=== PATIENT | female | born 1995 | race Caucasian/White ===

== ENCOUNTER → 2019-10-18 14:03 | Outpatient (CLI) | payer OTHER, MEDICAID, SELFPAY ==
[2019-10-21 20:49] LABS: Brief History NTD NG; Calc Gestational Age 15.1; Cigarette Smoker NO; Donated Egg NO; Donor Egg Age NO; Estriol, Free 0.69 ng/mL; Inhibin A, Dimeric 380 pg/mL; Inhibin A, MoM 2.42; Maternal Weight 205 lbs; Number of Fetuses 1; Previous Pregnancy Down Syndro NO; hCG, Serum 135.6 IU/mL
== END ==
PROVIDERS: Referring Provider Obstetrics & Gynecology; Visit Provider Obstetrics & Gynecology
DX: Z34.82 Encounter for supervision of other normal pregnancy, second trimester (principal)
CPT/HCPCS: 36415; 82105; 82677; 84702; 86336

== ENCOUNTER → 2019-10-19 14:08 | Outpatient (CLI) | payer OTHER, MEDICAID, SELFPAY ==
--- NOTE | 2019-10-19 14:09 | DI.US.S_ITS ---
PROCEDURE: US OB LIMITED INDICATIONS: CERVICAL LENGTH CHECK OUTSIDE/PRIOR DATING DATA: Last menstrual period (LMP): Not available. LMP-based estimated date of delivery (LING): Not available. First dating scan (date and location): Not available. Estimated date of delivery (LING) from first dating scan: Not available. TECHNIQUE: Real-time scanning was performed of the fetus, with image documentation. Endovaginal scanning: Not necessary. COMPARISON: None. FINDINGS: A single living intrauterine gestation is present. Presentation: Vertex. Placenta: Placental position is posterior, without previa. heart rate: 143 beats per minute. Maternal cervical canal: 5.1 cm long. Normal lower limit is 2.5 cm. IMPRESSION: Limited study, no comparisons available, 5.1 cm normal cervical length. heart rate 143 beats per minute, vertex presentation, amniotic fluid volume appears normal. Dictated by: Rakesh Copeland M.D. on 10/19/2019 at 15:09 Approved by: Rakesh Copeland M.D. on 10/19/2019 at 15:11
== END ==
PROVIDERS: Referring Provider Obstetrics & Gynecology; Visit Provider Obstetrics & Gynecology
DX: Z36.89 Encounter for other specified antenatal screening (principal)
CPT/HCPCS: 76815

== ENCOUNTER → 2019-11-16 12:21 | Outpatient (CLI) | payer OTHER, MEDICAID, SELFPAY ==
--- NOTE | 2019-11-16 | DI.US.S_ITS ---
PROCEDURE: OB >= 14 WEEKS FETUS INDICATIONS: ANATOMY OUTSIDE/PRIOR DATING DATA: Last menstrual period (LMP): Unknown. LMP-based estimated date of delivery (LING): Unknown. First dating scan (date and location): 11/16/19. Estimated date of delivery (LING) from first dating scan: 04/13/20. TECHNIQUE: Real-time scanning was performed of the fetus, with image documentation and biometric measurements. Endovaginal scanning: Not performed. COMPARISON: [facility], OB <= 14 WEEKS FETUS, 10/18/2019, 13:49. [facility], OB LIMITED, 10/19/2019, 14:30. FINDINGS: General: A single living intrauterine gestation is present. Presentation: Vertex Placenta: Placental position is posterior, without previa. Amniotic fluid index: 13 cm, normal range is 5-24 cm. heart rate: 157 beats per minute. Maternal cervical canal: 4.7 cm long. Normal lower limit is 2.5 cm. biometrics: Biparietal diameter: 4.2 cm, 18 weeks, 5 days Head circumference: 16.4 cm, 19 weeks one day Abdominal circumference: 13.6 cm, 19 weeks zero day Femur length: 2.6 cm, 18 weeks, zero day Estimated gestational age from initial scan: not applicable. Composite gestational age from present scan: 18 weeks, 5 days Estimated weight and percentile: 249 g, 5% Measurement variability for biometric dating: +/- 7 days from 14 weeks to 15 weeks 6 days gestation, +/- 10 days from 16 weeks to 21 weeks 6 days gestation, +/- 2 weeks from 22 weeks to 27 weeks 6 days gestation, +/- 3 weeks for 28 weeks gestation or later. weight reference: 4500 g or EFW >90/95% is considered macrosomia or large for gestational age. EFW <10% is small for gestational age. EFW 5% or less is considered intra-uterine growth restriction. Patient's known possible venous coombs versus subchorionic hematoma measures 6.8 x 3.5 x 3.2 cm in size now measures approximately 3.1 x 2.8 x 1.5 cm in size. There is a cystic structure near internal os and measures 3.2 x 1.6 x 3.7 cm in size which is unchanged or minimally increased in size compared to previous studies. Anatomic survey: Neuro: Ventricles are non-dilated at less than 10 mm. Cisterna magna is normal at 3-11 mm. Cerebellum is normal in size and morphology. Nuchal skin fold: Normal at less than 6 mm between 14-21 weeks gestational age. Face: Not well seen. Spine: No evidence for spina bifida. Heart: 4-chambered heart is present. Outflow tracts are not well seen on this study. Diaphragm: Diaphragm is intact. Stomach: Left-sided stomach is present. Kidneys: No hydronephrosis. Normal is less than 5 mm in 2nd trimester, less than 7 mm in 3rd trimester. Cord: 3-vessel cord is seen. Cord insertion is not well visualized. Bladder: Normal in size. Extremities: All 4 extremities identified. 3.2 x 2.7 cm simple cyst in upper pole of the left kidney is seen. IMPRESSION: 1. Single live intrauterine . Estimated weight is at 5%. 2. Normal amount of magnetic fluid. 3. face, outflow tracts, and cord insertion are not well visualized on this study. Rest of the anatomic survey is normal. 4. There is interval decrease in the size of patient's known venous coombs versus subchorionic hematoma. 5. Stable cystic structure near internal os and is of indeterminate significance. Continued sonographic followup is recommended. Dictated by: Sanya Jama M.D. on 11/16/2019 at 14:05 Approved by: Sanya Jama M.D. on 11/16/2019 at 14:33
== END ==
PROVIDERS: PCP Obstetrics & Gynecology; Referring Provider Obstetrics & Gynecology; Visit Provider Obstetrics & Gynecology
DX: Z34.92 Encounter for supervision of normal pregnancy, unspecified, second trimester (principal); Z3A.18 18 weeks gestation of pregnancy
CPT/HCPCS: 76811

== ENCOUNTER 2019-11-20 20:51 | Outpatient (CLI) | payer OTHER, MEDICAID, SELFPAY | END 2019-11-20 21:14 | disposition home or self-care (01) | LOC: OB 11-21 10:56 | PROVIDERS: PCP Obstetrics & Gynecology; Referring Provider Nurse Practitioner Obstetrics & Gynecology; Visit Provider Nurse Practitioner Obstetrics & Gynecology | DX: O36.8120 Decreased fetal movements, second trimester, not applicable or unspecified (principal); Z3A.20 20 weeks gestation of pregnancy | CPT/HCPCS: 59025; G0378; G0379 ==

== ENCOUNTER → 2019-11-22 11:55 | Outpatient (CLI) | payer OTHER, MEDICAID, SELFPAY ==
[2019-11-24 10:07] LABS: Bile Acids 3.7 umol/L (0.0-10.0)
== END ==
PROVIDERS: PCP Obstetrics & Gynecology; Referring Provider Obstetrics & Gynecology; Visit Provider Obstetrics & Gynecology
DX: O99.712 Diseases of the skin and subcutaneous tissue complicating pregnancy, second trimester (principal); L29.9 Pruritus, unspecified
CPT/HCPCS: 36415; 82239

== ENCOUNTER 2019-12-08 16:14 | Outpatient (CLI) | payer OTHER, MEDICAID, SELFPAY ==
[2019-12-08 16:36] LABS: Bacteria Urine None Seen; RBC Urine None Seen (0-5/HPF); WBC Urine None Seen (0-5/HPF)
[2019-12-08 16:37] LABS: Appearance Urine UA CLEAR; Bilirubin Urine UA NEGATIVE (NEGATIVE); Color Urine UA YELLOW; Glucose Urine UA NEGATIVE (Negative); Ketones Urine UA NEGATIVE (NEGATIVE); Leukocyte Esterase Urine UA NEGATIVE (NEGATIVE); Nitrite Urine UA NEGATIVE (Negative); Occult Blood Urine UA NEGATIVE (Negative); Protein Urine UA NEGATIVE (Negative); Specific Gravity Urine UA <=1.005 (1.000-1.035); Urobilinogen Urine UA 0.2 E.U./dL (0.2)
[2019-12-08 16:40] LABS: pH Urine UA 6.5 (4.5-8.0)
[2019-12-08 16:48] LABS: Culture Indicated Urine Cult Not Indicated; Urine Comments Microscopic Normal
--- NOTE | 2019-12-08 17:10 | P.TNLD_ITS ---
Visit Information Visit Information Date of evaluation: 12/08/19 Primary OB Provider: Marilyn Barrios On-call OB Provider: Karin Rolon Reason for Evaluation: Yes non-stress test non-stress test reason: other (cramping) Comments/Additional reasons for admission: 24 year old at 22 weeks gestation with h/o UTI with complaints of cramping all day. Denied bleeding or leaking and reported good movement. No fevers, back pain, nausea or vomiting. History significant for UTIs and pyelonephritis. Chart shows that she should be taking prophylactic Macrobid however she has not been taking it. Vital Signs Vital Signs: T 36.7 BP 104/60 P 81 PFSH Medical History (Updated 12/08/19 @ 17:15 by Karin Rolon DO) Anxiety (Acute) Chronic UTI (Acute) Constipated (Acute) Dysuria (Acute) Infertility (Acute) Kidney infection (Acute ~2013) (spontaneous vaginal delivery) (Acute ~2014) Surgical History (Updated 10/17/19 @ 11:52 by Nola Maria RN) [place] teeth removed (Acute ~2017) Family History (Updated 10/17/19 @ 11:58 by Nola Maria, TIFFANY) Mother Interstitial cystitis Bipolar 1 disorder Fibromyalgia Abnormal breast biopsy Family/Other Breast cancer Father Arthritis Grandfather Oral cancer Family estrangement Grandmother No problems noted. Grandfather AA (alcohol abuse) Hypotension Grandmother No problems noted. Brother No problems noted. Sister ADHD Social History marital status: household members: spouse and children pets and animals: Yes (X 3 cats ) education level: college (some college - Cos[employer]ology Program ) occupational status: employed current occupational exposures/hazards: No special manuel needs: No Smoking Status: Former smoker (vaped about 6 months) second hand exposure: No substance use type: does not use Objective Labs Labs: Laboratory Results - last 24 hr 12/08/19 16:15 Urine Color Yellow Urine Appearance Clear Urine pH 6.5 Ur Specific [place] <=1.005 Urine Protein Negative Urine Glucose (UA) Negative Urine Ketones Negative Urine Occult Blood Negative Urine Nitrate Negative Urine Bilirubin Negative Urine Urobilinogen 0.2 Ur Leukocyte Esterase Negative Urine RBC None seen Urine WBC None seen Urine Bacteria None seen Ur Culture Indicated? Cult not indicated Micro UA Comment Microscopic normal Evaluation Evaluation Baseline heart rate: 150 Variability: Average (6-10) monitor accelerations: Present (gestational age appropriate) monitor decelerations: Absent Category of Tracing: I Laboratory results: Laboratory Tests 12/08/19 16:15 Urine Color Yellow Urine Appearance Clear Urine pH 6.5 Ur Specific [place] <=1.005 Urine Protein Negative Urine Glucose (UA) Negative Urine Ketones Negative Urine Occult Blood Negative Urine Nitrate Negative Urine Bilirubin Negative Urine Urobilinogen 0.2 Ur Leukocyte Esterase Negative Urine RBC None seen Urine WBC None seen Urine Bacteria None seen Ur Culture Indicated? Cult not indicated Micro UA Comment Microscopic normal Diagnosis, Plan/Disposition Final Diagnosis (1) 22 weeks gestation of : Current Visit: Yes Status: Acute Plan/Disposition Plan: Reactive NST. No contractions on monitor. UA completely negative. Patient was reassured and will f/u with Dr. Barrios as scheduled next week. OB Disposition: home
== END 2019-12-08 17:16 | disposition home or self-care (01) ==
LOC: OB 12-09 08:19
PROVIDERS: PCP Obstetrics & Gynecology; Referring Provider Family Medicine; Visit Provider Family Medicine
DX: O47.02 False labor before 37 completed weeks of gestation, second trimester (principal); Z3A.22 22 weeks gestation of pregnancy
CPT/HCPCS: 59025; 81001; G0378; G0379

== ENCOUNTER → 2020-01-11 12:32 | Outpatient (CLI) | payer OTHER, MEDICAID, SELFPAY | PROVIDERS: PCP Obstetrics & Gynecology; Visit Provider Obstetrics & Gynecology | DX: Z34.82 Encounter for supervision of other normal pregnancy, second trimester (principal); R39.9 Unspecified symptoms and signs involving the genitourinary system; Z3A.27 27 weeks gestation of pregnancy | CPT/HCPCS: 87086 ==

== ENCOUNTER → 2020-01-24 12:52 | Outpatient (CLI) | payer OTHER, MEDICAID, SELFPAY ==
[2020-01-24 14:49] LABS: Hematocrit 27.8 % (36-46); Hemoglobin 9.4 g/dL (12.0-16.0)
[2020-01-24 15:27] LABS: GTT (PREG) 1 Hour PP 50gm Dose 107 mg/dL (76-139)
== END ==
PROVIDERS: Referring Provider Obstetrics & Gynecology; Visit Provider Obstetrics & Gynecology
DX: Z34.82 Encounter for supervision of other normal pregnancy, second trimester (principal); Z3A.23 23 weeks gestation of pregnancy
CPT/HCPCS: 36415; 82950; 85014; 85018

== ENCOUNTER 2020-02-24 12:57 | Emergency (ER) | payer OTHER, MEDICAID, SELFPAY ==
[2020-02-24 13:00] VITALS: BP 129/84; PULSE 96; RESP 16; TEMP 36.6; O2SAT 100; BMI 34.0
--- NOTE | 2020-02-24 13:04 | ED_ITS ---
HPI - SOB/Dyspnea General Chief Complaint: Abdominal Pain Stated Complaint: Trouble Breathing/Light Headed Time Seen by Provider: 02/24/20 13:02 Source: patient and family Mode of arrival: Ambulatory Limitations: no limitations History of Present Illness HPI Narrative: 24-year-old female nonsmoker with history of iron deficiency anemia is a at 30 weeks and presents with her daughter and a chief complaint of a few days of shortness of breath and some lightheadedness upon standing. She denies any cough or chest pain. She has had no fever or chills. She denies runny nose, sore throat nor nausea, or diarrhea. She has some very vague lower pelvic cramping but denies bleeding or leakage of fluid. She has no trouble with urination such as dysuria, frequency or urgency. She denies any pain, redness or swelling of her lower extremities. She spoke with her bark scaler who directed her here for evaluation MD Complaint: shortness of breath Onset (ago): day(s) Consistency/Duration: constant Relieving factors: nothing Exacerbating factors: nothing Treatment prior to arrival: none Related Data Home oxygen amount: none Home Medications Medication Instructions Recorded Confirmed prenat.vits,johnny,nxk-[id number] 1 tab PO DAILY 10/17/19 10/25/19 Previous Rx's Medication Instructions Recorded nitrofurantoin macrocrystal 100 mg 100 mg PO DAILY #60 cap 10/18/19 capsule ferrous gluconate 324 mg (37.5 mg 324 mg PO BID #60 tab 02/01/20 iron) tablet Allergies Allergy/AdvReac Type Severity Reaction Status Date / Time sulfamethoxazole Allergy Severe Skin burn Verified 02/24/20 13:06 [From Bactrim] and bleeding trimethoprim [From Bactrim] Allergy Severe Skin burn Verified 02/24/20 13:06 and bleeding Review of Systems Constitutional Constitutional: Denies chills, Denies fatigue, Denies fever(s), Denies frequent falls, Denies lethargy and Denies weakness Eyes Eyes: Denies change in vision, Denies eye discharge, Denies irritation and Denies loss of vision ENT Ears, Nose, Mouth, and Throat: Denies change in voice, Denies dizziness, Denies neck pain, Denies sore throat and Denies throat swelling Cardiovascular Cardiovascular: Denies chest pain, Denies irregular heart rhythm, Denies lightheadedness, Denies palpitations, Reports dyspnea, Denies dyspnea on exertion and Denies orthopnea Respiratory Respiratory: Denies cough, Reports dyspnea, Denies dyspnea on exertion and Denies wheezing Gastrointestinal Gastrointestinal: Denies abdominal pain, Denies change in bowel habits, Denies diarrhea, Denies nausea and Denies vomiting Musculoskeletal Musculoskeletal: Denies neck pain and Denies numbness Integumentary/Breasts Skin/Breast: Denies pruritus, Denies erythema, Denies rash and Denies wounds Neurologic Neurologic: Denies behavioral changes, Denies confusion, Denies dizziness, Denies frequent falls, Denies loss of vision, Denies numbness and Denies weakness Psychiatric Psychiatric: Denies anxiety, Denies behavioral changes, Denies confusion, Denies depression, Denies homicidal ideation and Denies suicidal ideation Endocrine Endocrine: Denies fatigue, Denies flushing and Denies palpitations Hematologic/Lymphatic Hematologic/Lymphatic: Denies easy bruising Allergic/Immunologic Allergic/Immunologic: Denies urticaria, Denies throat swelling and Denies wheezing Patient History Medical History Anxiety (Acute) Chronic UTI (Acute) Constipated (Acute) Dysuria (Acute) Infertility (Acute) Kidney infection (Acute ~2013) (spontaneous vaginal delivery) (Acute ~2014) Surgical History [place] teeth removed (Acute ~2017) Family History Mother Interstitial cystitis Bipolar 1 disorder Fibromyalgia Abnormal breast biopsy Family/Other Breast cancer Father Arthritis Grandfather Oral cancer Family estrangement Grandmother No problems noted. Grandfather AA (alcohol abuse) Hypotension Grandmother No problems noted. Brother No problems noted. 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 Well- nourished, well-developed patient, in mild distress. HEAD: Atraumatic. Normocephalic. EYES: Pupils equal round and reactive. Extraocular motions intact. No scleral icterus. No injection or drainage. ENT: Nose without bleeding, purulent drainage. Throat without erythema, tonsillar hypertrophy or exudate. Airway patent. NECK: Trachea midline. Non tender CARDIOVASCULAR: Regular rate and rhythm without murmurs, gallops, or rubs. RESPIRATORY: Clear to auscultation. Breath sounds equal bilaterally. No wheezes, rales, or rhonchi. GASTROINTESTINAL: Gravid above the level of umbilicus EXTREMITIES: No edema or joint tenderness. BACK: Nontender without deformity or crepitance. No flank tenderness. NEURO: AOx3. SKIN: No rash or erythema of visible areas Initial Vital Signs Initial Vital Signs: Vital Signs Temperature 97.8 F 02/24/20 13:00 Pulse Rate 96 H 02/24/20 13:00 Respiratory Rate 16 02/24/20 13:00 Blood Pressure 129/84 02/24/20 13:00 Pulse Oximetry 100 02/24/20 13:00 Course Orders Ordered: ED Orders 02/24/20 13:15 Alanine Aminotransferase Stat Aspartate Aminotransferase Stat Lactate Dehydrogenase Stat Uric Acid Stat 02/24/20 13:16 Basic Metabolic Panel Stat Complete Blood Count AUTO DIFF Stat D Dimer Stat Troponin & CK Cardiac Panel Stat Consultations Consultation #1: call to Dr. Barrios, and case discussed. Requests she be sent to L&D Vital Signs Vital signs: Vital Signs - 8 hr 02/24/20 13:00 02/24/20 14:55 Temperature 97.8 F Pulse Rate 96 H 95 H Respiratory Rate 16 18 Blood Pressure 129/84 112/60 Pulse Oximetry 100 99 MDM - SOB/Dyspnea Lab Data Result diagrams: 02/24/20 13:16 02/24/20 13:16 Labs: Lab Results 02/24/20 02/24/20 02/24/20 Range/Units 13:15 13:16 13:16 WBC 9.4 (4.5-11.0) X10^3/uL RBC 3.63 L (4.0-5.2) X10^6/uL Hgb 9.8 L (12.0-16.0) g/dL Hct 30.3 L (36-46) % MCV 83.4 (80-100) fL MCH 27.1 (26-34) PG MCHC 32.5 (30-36) % RDW 15.9 H (11.6-14.8) % Plt Count 247 (150-400) X10^3/uL Neut % (Auto) 74.5 (50-75) % Lymph % (Auto) 17.4 L (25-40) % [place] % (Auto) 6.5 (3-14) % Eos % (Auto) 0.7 L (2-4) % Baso % (Auto) 0.9 (0-2) % Neut # (Auto) 7000 (6436-0536) /uL Lymph # (Auto) 1600 (9469-3172) /uL [place] # (Auto) 600 (0-900) /uL Eos # (Auto) 100 (0-450) /uL Baso # (Auto) 100 (0-100) /uL D-Dimer 314 H (<230) ng/mL Sodium (137-145) mmol/L Potassium (3.4-5.1) mmol/L Chloride (98-107) mmol/L Carbon Dioxide (22-32) mmol/L BUN (7-17) mg/dL Creatinine (0.52-1.04) mg/dL Estimated GFR (>60) mL/min BUN/Creatinine Ratio (6-22) Glucose (70-100) mg/dL Uric Acid 4.3 (2.5-6.2) mg/dL Calcium (8.4-10.2) mg/dL AST 28 (14-36) IU/L ALT 18 (<35) IU/L Lactate Dehydrogenase 413 (313-618) U/L Total Creatine Kinase (30-135) U/L CK-MB (CK-2) CK-MB (CK-2) Rel Index Troponin I (0.01-0.034) ng/mL 02/24/20 02/24/20 Range/Units 13:16 13:16 WBC (4.5-11.0) X10^3/uL RBC (4.0-5.2) X10^6/uL Hgb (12.0-16.0) g/dL Hct (36-46) % MCV (80-100) fL MCH (26-34) PG MCHC (30-36) % RDW (11.6-14.8) % Plt Count (150-400) X10^3/uL Neut % (Auto) (50-75) % Lymph % (Auto) (25-40) % [place] % (Auto) (3-14) % Eos % (Auto) (2-4) % Baso % (Auto) (0-2) % Neut # (Auto) (7332-5901) /uL Lymph # (Auto) (7097-7156) /uL [place] # (Auto) (0-900) /uL Eos # (Auto) (0-450) /uL Baso # (Auto) (0-100) /uL D-Dimer (<230) ng/mL Sodium 133 L (137-145) mmol/L Potassium 4.1 (3.4-5.1) mmol/L Chloride 105 (98-107) mmol/L Carbon Dioxide 21 L (22-32) mmol/L BUN 5 L (7-17) mg/dL Creatinine 0.39 L (0.52-1.04) mg/dL Estimated GFR > 60.0 (>60) mL/min BUN/Creatinine Ratio 12.8 (6-22) Glucose 84 (70-100) mg/dL Uric Acid (2.5-6.2) mg/dL Calcium 9.4 (8.4-10.2) mg/dL AST (14-36) IU/L ALT (<35) IU/L Lactate Dehydrogenase (313-618) U/L Total Creatine Kinase 46 (30-135) U/L CK-MB (CK-2) TNP CK-MB (CK-2) Rel Index TNP Troponin I < 0.012 (0.01-0.034) ng/mL Urine Dip Bedside Urine Glucose Negative Bedside Urine Bilirubin - Negative Bedside Urine Ketone - Negative Urine Specific [place] 1.005 Bedside Urine Occult Blood - Negative Bedside Urine pH 6.5 Bedside Urine Protein - Negative Bedside Urine Urobilinogen - Negative Bedside Urine Nitrite - Negative Bedside Urine Leukocytes - Negative Esterase MDM Narrative Medical decision making narrative: Multiple etiologies for patient's symptoms considered including: [Pulmonary embolism versus pneumonia versus asthma versus other] Patient's symptoms improved or duration of stay with above-stated therapies. Findings and discharge diagnosis discussed with patient/family followed by verbalization of understanding Return precautions discussed with patient/family whom verbalize understanding. Discharge Plan Departure Patient Disposition: Home Clinical Impression: Acute dyspnea Qualifiers: Weeks of gestation: 30 weeks Qualified Code(s): Z3A.30 - 30 weeks gestation of Discharge Date/Time: 02/24/20 14:56 Admit Date/Time: 02/24/20 14:59
[2020-02-24 13:31] LABS: Add Manual Diff / Slide Review NO; Basophils Absolute Auto 100 /uL (0-100); Basophils Percent Auto 0.9 % (0-2); Eosinophils Absolute Auto 100 /uL (0-450); Eosinophils Percent Auto 0.7 % (2-4); Hematocrit 30.3 % (36-46); Hemoglobin 9.8 g/dL (12.0-16.0); Lymphocytes Absolute Auto 1600 /uL (1100-4500); Lymphocytes Percent Auto 17.4 % (25-40); Mean Corpuscular HGB Conc 32.5 % (30-36); Mean Corpuscular Hemoglobin 27.1 PG (26-34); Mean Corpuscular Volume 83.4 fL (80-100); Monocytes Absolute Auto 600 /uL (0-900); Monocytes Percent Auto 6.5 % (3-14); Neutrophils Absolute Auto 7000 /uL (1500-7000); Neutrophils Percent Auto 74.5 % (50-75); Platelet Count 247 X10^3/uL (150-400); Red Blood Cell Count 3.63 X10^6/uL (4.0-5.2); Red Cell Distribution Width 15.9 % (11.6-14.8); White Blood Cell Count 9.4 X10^3/uL (4.5-11.0)
[2020-02-24 13:39] LABS: Creatine Kinase 46 U/L (30-135); D Dimer 314 ng/mL (<230)
[2020-02-24 13:40] LABS: BUN Creatinine Ratio 12.8 (6-22); Blood Urea Nitrogen 5 mg/dL (7-17); Calcium 9.4 mg/dL (8.4-10.2); Carbon Dioxide 21 mmol/L (22-32); Chloride 105 mmol/L (98-107); Estimated Glomerular Filt Rate > 60.0 mL/min (>60); Glucose 84 mg/dL (70-100); HEMOLYSIS < 15 (0-50); Potassium 4.1 mmol/L (3.4-5.1); Sodium 133 mmol/L (137-145)
[2020-02-24 13:51] LABS: Troponin I < 0.012 ng/mL (0.01-0.034)
[2020-02-24 14:44] LABS: Alanine Aminotransferase 18 IU/L (<35); Aspartate Aminotransferase 28 IU/L (14-36); Lactate Dehydrogenase 413 U/L (313-618); Uric Acid 4.3 mg/dL (2.5-6.2)
[2020-02-24 14:55] VITALS: BP 112/60; PULSE 95; RESP 18; O2SAT 99
--- NOTE | 2020-02-24 20:42 | PM.OBTRLD ---
Visit Information Visit Information Date of evaluation: 02/24/20 Primary OB Provider: Marilyn Barrios Reason for Evaluation: Yes non-stress test Comments/Additional reasons for admission: This patient presented for NST after being evaluated in the ED for shortness of breath, with normal PIH labs and with low clinical concern for PE and COVID19 per ED physician. Patient had no OB complaints. Vital Signs Vital Signs: Vital Signs - 8 hr 02/24/20 13:00 02/24/20 14:55 Temperature 97.8 F Pulse Rate 96 H 95 H Respiratory Rate 16 18 Blood Pressure 129/84 112/60 Pulse Oximetry 100 99 [facility] Medical History Anxiety (Acute) Chronic UTI (Acute) Constipated (Acute) Dysuria (Acute) Infertility (Acute) Kidney infection (Acute ~2013) (spontaneous vaginal delivery) (Acute ~2014) Surgical History [place] teeth removed (Acute ~2017) Family History Mother Interstitial cystitis Bipolar 1 disorder Fibromyalgia Abnormal breast biopsy Family/Other Breast cancer Father Arthritis Grandfather Oral cancer Family estrangement Grandmother No problems noted. Grandfather AA (alcohol abuse) Hypotension Grandmother No problems noted. Brother No problems noted. Sister ADHD Social History marital status: household members: spouse and children pets and animals: Yes (X 3 cats ) education level: college (some college - Cosmetology Program ) occupational status: employed current occupational exposures/hazards: No special manuel needs: No Smoking Status: Former smoker (vaped about 6 months) second hand exposure: No substance use type: does not use Exam Vital Signs (past 8 hours): - 02/24/20 13:00 02/24/20 14:55 Temperature 97.8 F Pulse Rate 96 H 95 H Respiratory Rate 16 18 Blood Pressure 129/84 112/60 Pulse Oximetry 100 99 Oxygen Delivery Method Room Air Objective Labs Result Diagrams: 02/24/20 13:16 02/24/20 13:16 Labs: Laboratory Results - last 24 hr 02/24/20 02/24/20 02/24/20 13:15 13:16 13:16 WBC 9.4 RBC 3.63 L Hgb 9.8 L Hct 30.3 L MCV 83.4 MCH 27.1 MCHC 32.5 RDW 15.9 H Plt Count 247 Neut % (Auto) 74.5 Lymph % (Auto) 17.4 L [place] % (Auto) 6.5 Eos % (Auto) 0.7 L Baso % (Auto) 0.9 Neut # (Auto) 7000 Lymph # (Auto) 1600 [place] # (Auto) 600 Eos # (Auto) 100 Baso # (Auto) 100 D-Dimer 314 H Sodium Potassium Chloride Carbon Dioxide BUN Creatinine Estimated GFR BUN/Creatinine Ratio Glucose Uric Acid 4.3 Calcium AST 28 ALT 18 Lactate Dehydrogenase 413 Total Creatine Kinase CK-MB (CK-2) CK-MB (CK-2) Rel Index Troponin I 02/24/20 02/24/20 13:16 13:16 WBC RBC Hgb Hct MCV MCH MCHC RDW Plt Count Neut % (Auto) Lymph % (Auto) [place] % (Auto) Eos % (Auto) Baso % (Auto) Neut # (Auto) Lymph # (Auto) [place] # (Auto) Eos # (Auto) Baso # (Auto) D-Dimer Sodium 133 L Potassium 4.1 Chloride 105 Carbon Dioxide 21 L BUN 5 L Creatinine 0.39 L Estimated GFR > 60.0 BUN/Creatinine Ratio 12.8 Glucose 84 Uric Acid Calcium 9.4 AST ALT Lactate Dehydrogenase Total Creatine Kinase 46 CK-MB (CK-2) TNP CK-MB (CK-2) Rel Index TNP Troponin I < 0.012 Evaluation Evaluation Baseline heart rate: 125 Variability: Average (6-10) monitor accelerations: Present monitor decelerations: Absent Laboratory results: Laboratory Tests 02/24/20 02/24/20 02/24/20 13:15 13:16 13:16 WBC 9.4 RBC 3.63 L Hgb 9.8 L Hct 30.3 L MCV 83.4 MCH 27.1 MCHC 32.5 RDW 15.9 H Plt Count 247 Neut % (Auto) 74.5 Lymph % (Auto) 17.4 L [place] % (Auto) 6.5 Eos % (Auto) 0.7 L Baso % (Auto) 0.9 Neut # (Auto) 7000 Lymph # (Auto) 1600 [place] # (Auto) 600 Eos # (Auto) 100 Baso # (Auto) 100 D-Dimer 314 H Sodium Potassium Chloride Carbon Dioxide BUN Creatinine Estimated GFR BUN/Creatinine Ratio Glucose Uric Acid 4.3 Calcium AST 28 ALT 18 Lactate Dehydrogenase 413 Total Creatine Kinase CK-MB (CK-2) CK-MB (CK-2) Rel Index Troponin I 02/24/20 02/24/20 13:16 13:16 WBC RBC Hgb Hct MCV MCH MCHC RDW Plt Count Neut % (Auto) Lymph % (Auto) [place] % (Auto) Eos % (Auto) Baso % (Auto) Neut # (Auto) Lymph # (Auto) [place] # (Auto) Eos # (Auto) Baso # (Auto) D-Dimer Sodium 133 L Potassium 4.1 Chloride 105 Carbon Dioxide 21 L BUN 5 L Creatinine 0.39 L Estimated GFR > 60.0 BUN/Creatinine Ratio 12.8 Glucose 84 Uric Acid Calcium 9.4 AST ALT Lactate Dehydrogenase Total Creatine Kinase 46 CK-MB (CK-2) TNP CK-MB (CK-2) Rel Index TNP Troponin I < 0.012 Diagnosis, Plan/Disposition Plan/Disposition Plan: Home with routine precautions, to call or come in if symptoms worsen. OB Disposition: home
== END 2020-02-24 14:56 | disposition home or self-care (01) ==
LOC: ED 14:34 → LABOR 15:28
PROVIDERS: Emergency Provider Emergency Medicine; Referring Provider Obstetrics & Gynecology; Visit Provider Obstetrics & Gynecology
DX: O26.893 Other specified pregnancy related conditions, third trimester (principal); R06.02 Shortness of breath; Z3A.34 34 weeks gestation of pregnancy
CPT/HCPCS: 36415; 59025; 80048; 81003; 82550; 83615; 84450; 84460; 84484; 84550; 85025; 85379; 99284; G0378

== ENCOUNTER → 2020-03-12 11:39 | Outpatient (CLI) | payer OTHER, MEDICAID, SELFPAY ==
[2020-03-13 09:36] LABS: Strep Grp B PCR NEG for Grp B Strep
== END ==
PROVIDERS: Visit Provider Obstetrics & Gynecology
DX: Z34.83 Encounter for supervision of other normal pregnancy, third trimester (principal); Z3A.35 35 weeks gestation of pregnancy
CPT/HCPCS: 87653

== ENCOUNTER → 2020-04-09 12:18 | Outpatient (CLI) | payer OTHER, MEDICAID, SELFPAY ==
[2020-04-10 20:01] LABS: COVID19 Sendout Not Detected (Not Detect)
== END ==
PROVIDERS: Visit Provider Physician Assistant
DX: Z11.59 Encounter for screening for other viral diseases (principal)
CPT/HCPCS: 87635

== ENCOUNTER 2020-04-11 18:32 | Inpatient (IN) | payer OTHER, MEDICAID, SELFPAY ==
[2020-04-11 19:58] LABS: Add Manual Diff / Slide Review NO; Basophils Absolute Auto 0 /uL (0-100); Basophils Percent Auto 0.2 % (0-2); Eosinophils Absolute Auto 100 /uL (0-450); Eosinophils Percent Auto 0.9 % (2-4); Hematocrit 29.3 % (36-46); Hemoglobin 9.3 g/dL (12.0-16.0); Lymphocytes Absolute Auto 1600 /uL (1100-4500); Lymphocytes Percent Auto 21.7 % (25-40); Mean Corpuscular HGB Conc 31.8 % (30-36); Mean Corpuscular Hemoglobin 24.5 PG (26-34); Monocytes Absolute Auto 500 /uL (0-900); Monocytes Percent Auto 6.8 % (3-14); Neutrophils Absolute Auto 5200 /uL (1500-7000); Neutrophils Percent Auto 70.4 % (50-75); Platelet Count 236 X10^3/uL (150-400); Red Cell Distribution Width 17.8 % (11.6-14.8); White Blood Cell Count 7.5 X10^3/uL (4.5-11.0)
[2020-04-11] MEDS: DINOPROSTONE VAG (CERVIDIL) 10 MG VAG (21:10)
[2020-04-11] MEDS: LACTATED RINGERS 1,000 ML 100 ML IV (21:59)
[2020-04-11] MEDS: ZOLPIDEM 5 MG TABLET 10 MG PO (22:00)
[2020-04-11 22:25] VITALS: BP 111/56
--- NOTE | 2020-04-12 08:26 | P.HPOB_ITS ---
OB HPI Date/Time Date of admission: 04/11/20 Date Patient Seen: 04/12/20 Time Patient Seen: 07:45 History of Present Condition Chief complaint: maternity : 2 Para: 1 Estimated Date of Delivery: 04/15/20 Estimated Gestational Age (weeks): 39 Narrative: Rhonda Doe is a 24 year old female Comments: This patient is a 24-year-old 001 at 39 weeks 4 days admitted for elective induction of labor, having undergone cervical ripening overnight with Cervidil. The patient reports feeling cramping every 2-3 minutes this morning, denies loss of fluid, vaginal bleeding, decreased movement, or any other complaints obstetrical or otherwise. Her has been complicated by elevated quad screen with further evaluation negative by aid of MFM, resolved marginal posterior placenta previa, and subchorionic hemorrhage with bleeding in the 2nd trimester. Her has since been uncomplicated. Patient declines any further cervical exams until she has received her epidural Indications Indication for induction OB: maternal discomfort and other (Elective) History of Present care: good care Dating criteria: LMP confirmed by 2nd trimester US (Adjusted by MFM ultrasound in 2nd trimester.) Ultrasounds: normal mid trimester US Abnormal ultrasound findings: Marginal placenta previa early that resolved, subchorionic hematoma that resolved, question of small left subserosal fibroid. Obstetrical complications: none Medical complications: none Preadmission Labs Blood type: O (+) positive -: Antibody screen: negative, GBS status: negative, HBsAG: negative, HIV: negative and RPR/VDLR: negative -: Chlamydia screen: not detected and Gonorrhea screen: not detected -: Rubella: immune and Varicella: immune Quad screen: Abnormal (Elevated risk of Down syndrome) Cell-free DNA: Negative, performed through double 1 hr GTT: 107 Prior (ies) History: G1: 04/10/15, 42 weeks, 10 lb 14 oz, , Female, postdates induction Evaluation Evaluation Baseline heart rate: 150 Variability: Moderate (11-25) monitor accelerations: Prolonged monitor decelerations: Absent Category of Tracing: Reactive (cat 1 ) Cervical dilation (cm): 2 Cervical effacement (%): 75 station: -2 Laboratory results: Laboratory Tests 04/11/20 04/11/20 18:20 18:20 WBC 7.5 RBC 3.80 L Hgb 9.3 L Hct 29.3 L MCV 77.0 L MCH 24.5 L MCHC 31.8 RDW 17.8 H Plt Count 236 Neut % (Auto) 70.4 Lymph % (Auto) 21.7 L [place] % (Auto) 6.8 Eos % (Auto) 0.9 L Baso % (Auto) 0.2 Neut # (Auto) 5200 Lymph # (Auto) 1600 [place] # (Auto) 500 Eos # (Auto) 100 Baso # (Auto) 0 Blood Type O Positive Antibody Screen Negative [facility] Medical History Anxiety (Acute) Chronic UTI (Acute) Constipated (Acute) Dysuria (Acute) Infertility (Acute) Kidney infection (Acute ~2013) (spontaneous vaginal delivery) (Acute ~2014) Surgical History [place] teeth removed (Acute ~2017) Family History Mother Interstitial cystitis Bipolar 1 disorder Fibromyalgia Abnormal breast biopsy Family/Other Breast cancer Father Arthritis Grandfather Oral cancer Family estrangement Grandmother No problems noted. Grandfather AA (alcohol abuse) Hypotension Grandmother No problems noted. Brother No problems noted. Sister ADHD Social History marital status: household members: spouse and children pets and animals: Yes (X 3 cats ) education level: college (some college - [employer] Program ) occupational status: employed current occupational exposures/hazards: No special manuel needs: No Smoking Status: Never smoker second hand exposure: No substance use type: does not use Meds Home Medications and Allergies Home Medications Medication Instructions Recorded Confirmed Type prenat.vits,johnny,mel-gkrq-[id number] 1 tab PO DAILY 10/17/19 04/12/20 History nitrofurantoin macrocrystal 100 mg 100 mg PO DAILY #60 cap 10/18/19 04/12/20 Rx capsule ferrous gluconate 324 mg (37.5 mg 324 mg PO BID #60 tab 02/01/20 04/12/20 Rx iron) tablet cephalexin 500 mg tablet 500 mg PO DAILY #30 tab 03/19/20 04/12/20 Rx Allergies Allergy/AdvReac Type Severity Reaction Status Date / Time sulfamethoxazole Allergy Severe Skin burn Verified 04/09/20 12:20 [From Bactrim] and bleeding trimethoprim [From Bactrim] Allergy Severe Skin burn Verified 04/09/20 12:20 and bleeding Review of Systems Constitutional Constitutional: Reports system reviewed and no additional complaints, except as documented Cardiovascular Cardiovascular: Reports system reviewed and no additional complaints, except as documented Respiratory Respiratory: Reports system reviewed and no additional complaints, except as documented Gastrointestinal Gastrointestinal: Reports system reviewed and no additional complaints, except as documented Genitourinary Genitourinary: Reports system reviewed and no additional complaints, except as documented Musculoskeletal Musculoskeletal: Reports system reviewed and no additional complaints, except as documented Neurologic Neurologic: Reports system reviewed and no additional complaints, except as documented Exam Vital Signs (past 8 hours): 120/70, 106, 37.5C Const General: cooperative, healthy appearing and comfortable Resp Effort & Inspection: normal respiratory effort Cardio Rate: regular rate Rhythm: regular rhythm GI Palpation: soft and No tender External Female Exam: normal external appearance Other: Patient refuses further exam. Neuro General: patient alert, patient awake and patient oriented x3 Objective Labs Result Diagrams: 04/11/20 18:20 Labs: Laboratory Results - last 24 hr 04/11/20 04/11/20 18:20 18:20 WBC 7.5 RBC 3.80 L Hgb 9.3 L Hct 29.3 L MCV 77.0 L MCH 24.5 L MCHC 31.8 RDW 17.8 H Plt Count 236 Neut % (Auto) 70.4 Lymph % (Auto) 21.7 L [place] % (Auto) 6.8 Eos % (Auto) 0.9 L Baso % (Auto) 0.2 Neut # (Auto) 5200 Lymph # (Auto) 1600 [place] # (Auto) 500 Eos # (Auto) 100 Baso # (Auto) 0 Blood Type O Positive Antibody Screen Negative Assessment and Plan Assessment and Plan Assessment and Plan narrative: This patient is admitted for elective induction of labor in the setting of a prior delivery of a 10 lb 14 oz baby, which was traumatic. She has undergone cervical ripening, has a category 1 tracing, but r efuses further cervical exams. We discussed starting the Pitocin with an epidural after the Pitocin started, and discussed with the patient the further cervical exams and be required to assess her progress the labor. We discussed a room after labor has been established. The patient is anemic, has been intermittently compliant with p.o. iron during this . Admitted per usual induction precautions. - CBC, T&S ordered - pitocin per protocol this AM - cEFM, toco
[2020-04-12] MEDS: OXYTOCIN PREMIX 30 UNIT/500 ML PLAST..BAG IV (10:50)
[2020-04-12] MEDS: LACTATED RINGERS 1,000 ML 100 ML IV (11:05)
[2020-04-12] MEDS: CALCIUM CARBONATE 500 MG TAB 1000 MG PO ×2 (13:30→20:52)
--- NOTE | 2020-04-12 15:31 | PM.OBPNLAB ---
Date/Time Date Patient Seen: 04/12/20 Time Patient Seen: 15:31 Pain Control Pain control: epidural Comments: VSS Pelvic Exam Dilation (cm): 4 Effacement (%): 75 station: -1 Amniotic membrane status: Ruptured (light mec) Contractions Contractions on admission: irregular Pitocin rate (mU/min): 10 Contraction frequency (min): 3 Contraction pattern: Regular Contraction intensity: Moderate Status status: Category l Heart Rate Baseline: 130 Monitor Accelerations: Present Monitor Decelerations: Absent Monitor Variability: Moderate Assessment and Plan Assessment: active labor Plan: continuous present management
[2020-04-12] MEDS: FENT 2MCG/ML BUPIV 0.125% EPI 200 MCG/100 ML PLAST..BAG 12 MCG EPIDURAL ×2 (16:40→23:03)
--- NOTE | 2020-04-12 17:28 | PM.OBPNLAB ---
Date/Time Date Patient Seen: 04/12/20 Time Patient Seen: 17:29 Pain Control Pain control: epidural Comments: reports intermittent pressure Pelvic Exam Dilation (cm): 5 Effacement (%): 80 station: -1 Amniotic membrane status: Ruptured (light mec) Comments: IUPC placed, advanced easily with minimal pressure past the vertex on the left lateral side. Contractions Pitocin rate (mU/min): 14 Contraction frequency (min): 2 Contraction pattern: Regular Status status: Category l Heart Rate Baseline: 130 Monitor Accelerations: Present Monitor Decelerations: Absent Monitor Variability: Moderate Assessment and Plan Assessment: induction ongoing Plan: continuous present management Comments: Continue present management. Using IUPC to assess adequacy of pitocin induction.
--- NOTE | 2020-04-12 20:23 | PM.OBPNLAB ---
Date/Time Date Patient Seen: 04/12/20 Time Patient Seen: 20:23 Pain Control Pain control: epidural Pelvic Exam Dilation (cm): 5 Effacement (%): 80 station: -1 Amniotic membrane status: Ruptured (light mec) Contractions Pitocin rate (mU/min): 11 Contraction frequency (min): 2 Contraction pattern: Regular Contraction intensity: Moderate Status status: Category l Heart Rate Baseline: 135 Monitor Accelerations: Present Monitor Decelerations: Absent Monitor Variability: Moderate Assessment and Plan Plan: Comments: This patient has made minimal cervical change since AROM, with a vertex that remains high. The patient requested a discussion of the risks and benefits of c section vs. continued induction with pitocin, and we discussed the risks of hemorrhage which we would mitigate with medications and blood transfusion if necessary. We discussed the risk of damage to bowel and bladder, and risk of infection, for which she will receive antibiotics. We discussed risks of uterine rupture and abnormal placentation in future pregnancies, and the patient and her partner vocalized understanding. The patient has a cat 1 EFM with no signs of distress, and the OR crew is currently completing an emergent General Surgery case. We agreed to continue pitocin induction with a plan to recheck the patient's cervix, and to proceed to the operating room if the patient has not made significant change.
--- NOTE | 2020-04-13 00:05 | PM.OBPNLAB ---
Date/Time Date Patient Seen: 04/13/20 Time Patient Seen: 00:05 Pain Control Pain control: epidural Pelvic Exam Dilation (cm): 8 Effacement (%): 100 station: -1 Amniotic membrane status: Ruptured (light mec) Contractions Pitocin rate (mU/min): 9 Contraction frequency (min): 2 Contraction pattern: Regular Contraction intensity: Moderate Status status: Category ll Heart Rate Baseline: 135 Monitor Accelerations: Absent Monitor Decelerations: Variable (intermittent) Monitor Variability: Moderate Assessment and Plan Assessment: induction ongoing Plan: continuous present management Comments: Patient making slow cervical change, last exam at 10:30 PM was 7.5cm. Cat 2 EFM for intermittent variable decels, but +scal stim, +mod variability. Discussed with patient waiting one hour, reexam.
[2020-04-13] MEDS: CALCIUM CARBONATE 500 MG TAB 1000 MG PO (01:35)
[2020-04-13] MEDS: METHYLERGONOVINE 0.2 MG/ML VIAL IM (02:06)
[2020-04-13] MEDS: miSOPROStoL 200 MCG TABLET 1000 MCG VAG (02:10)
--- NOTE | 2020-04-13 02:23 | PM.OBPRVD ---
Events: Labor Induction Labor & Delivery Delivery date: 04/13/20 Intrapartal events: Prolonged Latent Phase, Acceleration and Deceleration Cervical ripening method: per Cervidil protocol Induction method: per pitocin protocol Delivery augmentation: rupture of membranes Delivery monitor: external FHT and external uterine Route of delivery: L&D Laceration Description: None Estimated blood loss (mL): 450 Anesthesia type: Epidural Narrative: This patient presented for elective induction of labor due to a history of a traumatic delivery with her first child, an of a 10#14oz baby in the postdates period. She underwent cervical ripening with cervidil, received her epidural at 1.5cm dilation on maternal request, and was subsequently augmented with pitocin and then AROM for light mec. After a protracted latent phase, she entered active labor, and progressed to fully dilated though with a cat 2 EFM for variable decelerations and periods of minimal variability. After a 40 minute pushing stage, she was delivered of a healthy baby girl, weight 9#4, apgars 9 and 10. A loose nuchal cord was reduced at the perineum, and the shoulders delivered with ease with a slight corkscrew maneuver. The placenta spontaneously delivered intact shortly thereafter. A period of brisk bleeding was noted in the setting of uterine atony, and the patient received 0.2mg methergine IM, 1000mcg cytotec per rectum, and 30mU of pitocin in 500mg LR as a bolus. The bleeding subsided, and as the cervix was easily visible, it was inspected gently with use of a ring forceps and had no lacerations. There were no perineal or other lacerations, and the immediate period was otherwise uncomplicated. [place] Baby 1: gender: Female Presentation: vertex position: Left Occiput Transverse (direct OA) cord vessel description: Nuchal Cord (loose) score (1 min): 9 score (5 min): 10 (assigned by nursing staff) Plan for aftercare: Routine care. Continue methergine series if bleeding increases. AM CBC given preexisting anemia. Patient has frequent UTIs, requests keflex given catheter.
[2020-04-13] MEDS: LANOLIN OINT 7 GM 1 APPLIC TOP (05:40)
[2020-04-13 05:41] VITALS: TEMP 37
[2020-04-13] MEDS: IBUPROFEN 600 MG TABLET PO ×3 (05:41→17:31)
[2020-04-13] MEDS: DERMOPLAST SPRAY 20% 60 ML 1 SPRAY TOP (05:42)
[2020-04-13] MEDS: cephALEXin 250 MG CAPSULE 500 MG PO ×2 (09:19→23:04)
[2020-04-13] MEDS: FERROUS GLUCONATE 324 MG TABLET PO (09:19)
--- NOTE | 2020-04-13 09:33 | P.PNOB_ITS ---
Subjective - OB Subjective Patient comments: pain well controlled and tolerating diet [place] baby status: doing well feeding status: exclusively breast feeding Date Patient Seen: 04/13/20 Time Patient Seen: 09:33 Interval history: This patient is day 0 status post vaginal delivery, feeling well this morning. Pain is well controlled, lochia is mild to moderate with no further doses of nifedipine, patient is ambulating and voiding without issue, tolerating PO, denies SHAIKH, visual changes, chest pain, SOB. Exam Vital Signs (past 8 hours): - 112/65, Hr 98 04/13/20 05:41 Temperature 98.6 F Resp Effort & Inspection: normal respiratory effort Auscultation: clear to auscultation bilaterally Cardio Rate: regular rate Rhythm: regular rhythm GI Palpation: soft and No tender Other: fundus firm, well below u Skin General: no rashes or lesions noted Objective Labs Result Diagrams: 04/11/20 18:20 Assessment & Plan Plan day: 0 plan OB: routine care Comments: This patient is recovering well this AM, meeting goals appropriately. Discussed discharge early tomorrow AM. Routine care. Time Spent With Patient Time: Total time spent is greater than 50% in coordination of care (as documented) at patient's floor/unit and/or counseling patient: Time with patient: less than 15 minutes
[2020-04-13] MEDS: ACETAMINOPHEN 325 MG TABLET 650 MG PO ×2 (11:28→17:31)
[2020-04-13] MEDS: DOCUSATE 100 MG CAPSULE PO (11:28)
[2020-04-14] MEDS: ACETAMINOPHEN 325 MG TABLET 650 MG PO ×3 (00:02→11:25)
[2020-04-14] MEDS: IBUPROFEN 600 MG TABLET PO ×3 (00:02→11:25)
[2020-04-14 05:50] LABS: Add Manual Diff / Slide Review NO; Basophils Absolute Auto 0 /uL (0-100); Basophils Percent Auto 0.5 % (0-2); Eosinophils Absolute Auto 200 /uL (0-450); Eosinophils Percent Auto 3.1 % (2-4); Hematocrit 26.4 % (36-46); Hemoglobin 8.3 g/dL (12.0-16.0); Lymphocytes Absolute Auto 2200 /uL (1100-4500); Mean Corpuscular HGB Conc 31.4 % (30-36); Mean Corpuscular Hemoglobin 24.4 PG (26-34); Mean Corpuscular Volume 77.8 fL (80-100); Monocytes Absolute Auto 500 /uL (0-900); Monocytes Percent Auto 6.8 % (3-14); Neutrophils Absolute Auto 4600 /uL (1500-7000); Neutrophils Percent Auto 60.6 % (50-75); Platelet Count 198 X10^3/uL (150-400); Red Blood Cell Count 3.39 X10^6/uL (4.0-5.2); Red Cell Distribution Width 17.9 % (11.6-14.8); White Blood Cell Count 7.6 X10^3/uL (4.5-11.0)
[2020-04-14] MEDS: MEASLES,MUMPS,RUBELLA VACC/PF 0.5 ML VIAL SUBCUT (08:26)
[2020-04-14] MEDS: FERROUS GLUCONATE 324 MG TABLET PO (09:49)
[2020-04-14] MEDS: DOCUSATE 100 MG CAPSULE PO (09:49)
--- NOTE | 2020-04-14 13:26 | PM.OBDS.1 ---
Discharge Providers Provider Date of admission: 04/11/20 18:32 Discharge Date: 04/14/20 Consults: 04/14/20 02:21 Consult to Supply Chain Specialist Routine Comment: Discharge provider: Nanette Whittaker MD Summary Hospital Course Date Patient Seen: 04/14/20 Time Patient Seen: 10:45 Procedures: Cervidil cervical ripening Artificial rupture membranes Pitocin augmentation of labor Epidural analgesia Spontaneous vaginal delivery Management of hemorrhage Hospital Course: The patient presented on the evening of April 11, 2020 for cervical ripening. She received Cervidil. On the morning of April 12, 2020 she had an artificial rupture of membranes. Pitocin augmentation was started when contractions stalled. She progressed to complete dilation very slowly. She had a spontaneous vaginal delivery with a mild shoulder dystocia. She had a hemorrhage which was managed with Cytotec, Methergine, and Pitocin. Her course was unremarkable. Peripartum Data Delivery Method: Natural Vaginal Laceration Description: None Procedures: Cervidil cervical ripening Artificial rupture of membranes Pitocin augmentation of labor Epidural analgesia Spontaneous vaginal delivery hemorrhage management complications: none 1: Gender: Female (Left occiput transverse, Apgars 9 at 1 minute and 10 at 5 minutes, loose nuchal cord) Disposition of : home Status at Discharge Cognitive/behavioral status at discharge: oriented Functional status at discharge: independent ambulation Overall status at discharge: patient is progressing back to baseline Time Spent with Patient Time attestation: Total time spent providing and/or coordinating discharge services: Time spent: Less than 30 minutes Objective Labs Result Diagrams: 04/14/20 05:35 Labs: Laboratory Results - last 24 hr 04/14/20 05:35 WBC 7.6 RBC 3.39 L Hgb 8.3 L Hct 26.4 L MCV 77.8 L MCH 24.4 L MCHC 31.4 RDW 17.9 H Plt Count 198 Neut % (Auto) 60.6 Lymph % (Auto) 29.0 [place] % (Auto) 6.8 Eos % (Auto) 3.1 Baso % (Auto) 0.5 Neut # (Auto) 4600 Lymph # (Auto) 2200 [place] # (Auto) 500 Eos # (Auto) 200 Baso # (Auto) 0 Exam Vital Signs (past 8 hours): Generally: Patient is sitting up in bed, no acute distress Fundus: Firm at U -1 Extremities: Negative Homans, no edema Discharge Plan Discharge Plan Patient Disposition: Home Discharge comment: Call with fever, chills, or bleeding vaginally more than a pad in an hour Ibuprofen 600mg every 6 hours alternating with Tylenol as needed Discharge orders & Medications Prescriptions: Continued prenat.vits,johnny,[id number] Tablet 1 tab PO DAILY RF: 0 ferrous gluconate 324 mg (37.5 mg iron) tablet 324 mg PO BID Qty: 60 RF: 3 Discontinued nitrofurantoin macrocrystal 100 mg capsule 100 mg PO DAILY Qty: 60 RF: 4 cephalexin 500 mg tablet 500 mg PO DAILY Qty: 30 RF: 1 Follow up/Referrals: LowellMarilyn MD [Physician] - 6 Weeks Diet/Activity/Treatments Diet: Regular Activity: No intercourse Skin/Wound/Dressing Care Report to your healthcare provider any signs of infection, such as:: chills, fever, increased pain and unusual drainage Visit Report/Discharge Packet Instructions: DI for Labor and Delivery, Vaginal Stand Alone Forms: Discharge: Care Visit Report Forms: Patient Portal/API, Stroke Signs & Symptoms Discharges patient from system. Discharge Date/Time: 04/14/20 11:35
== END 2020-04-14 11:35 | disposition home or self-care (01) | DRG 560 ==
PROVIDERS: Nurse Practitioner Obstetrics & Gynecology; Admitting Provider Obstetrics & Gynecology; Referring Provider Obstetrics & Gynecology; Visit Provider Obstetrics & Gynecology
DX: O99.02 Anemia complicating childbirth (principal); D64.9 Anemia, unspecified; O26.813 Pregnancy related exhaustion and fatigue, third trimester; O72.0 Third-stage hemorrhage; O63.0 Prolonged first stage (of labor); Z37.0 Single live birth; Z3A.39 39 weeks gestation of pregnancy; O77.0 Labor and delivery complicated by meconium in amniotic fluid; O69.81X0 Labor and delivery complicated by cord around neck, without compression, not applicable or unspecified
CPT/HCPCS: 01967; 36415; 59050; 59409; 85025; 86850; 86900; 86901; G0379; J2210; J2590; S0191